=== PATIENT | male | born 1990 | race Caucasian/White ===

== ENCOUNTER 2016-08-14 23:28 | Emergency (ER) | payer SELFPAY ==
[2016-08-14 23:43] VITALS: BP 134/85
[2016-08-14] MEDS ORDERED: TETRACAINE HCL/PF 5% OPTH SOL OP ONE (23:48)
--- NOTE | 2016-08-14 23:49 | ED Physician Documentation ---
Ear Complaints - HISTORIAN Historian: patient - HPI Stated Complaint: LEFT EAR PAIN Chief Complaint: Ear Complaints Additional Information: feels like he has another pimple inside his ear canal, he has had a couple similar the past few weeks, and has put a q-tip in and pushed on it and popped it, and fluid came out. he feels like there is another one in their now. no other complaints. Timing: still present Location of Pain: L ear Severity: moderate Associated Symptoms: sharp pain. denies: fever, chills, ringing, roaring, trauma to ear Further Comments: no - ROS CONST: no problems CVS/RESP: none MS/SKIN/LYMPH: none NEURO/PSYCH: denies: weakness All Systems -: No - PAST HX Past History: none Immunizations: UTD Allergies/Adverse Reactions: Allergies Allergy/AdvReac Type Severity Reaction Status Date / Time nuts Allergy Uncoded 08/14/16 23:44 Home Medications: Ambulatory Orders Medication Instructions Recorded NK [NK] 08/14/16 - SOCIAL HX Smoking History: non-smoker Alcohol Use: none Drug Use: none - FAMILY HX Family History: No - VITAL SIGNS Vital Signs: Vital Signs Temp Pulse Resp BP Pulse Ox 98.5 F 85 14 134/85 99 08/14/16 23:29 08/14/16 23:29 08/14/16 23:29 08/14/16 23:29 08/14/16 23:29 - REVIEWED ASSESSMENTS Nursing Assessment Reviewed: Yes Vitals Reviewed: Yes Ear Complaint Physical Exam - EXAM General Appearance: no acute distress, alert Ear: auricle nml, erythema, swelling of canal, other (it appears to be a small pimple superior EAC on left, Right is unrenmarkable). No: pain w movement of auricl, bulging of TM, perforation of TM, fluid behind TM, foreign body Mouth/Throat: lips nml Nose: nml inspection Head/Neck: atraumatic, neck nml inspection Eye: eyes nml inspection Skin: nml color, no skin rash Neuro/Psych: oriented x3, mood/affect nml Discharge Clincal Impression: Acute otitis externa of left ear Qualifiers: Otitis externa type: other infective Qualified Code(s): H60.392 - Other infective otitis externa, left ear Home Medications: Ambulatory Orders NK [NK] 08/14/16 Condition: Good Disposition: 01 HOME, SELF-CARE Decision to Admit: NO Date of Decison to Admit: 08/14/16 Decision Time: 23:52
[2016-08-14] MEDS: TETRACAINE HCL/PF 5% OPTH SOL OP ONE (23:56)
== END 2016-08-14 23:57 | disposition home or self-care (01) ==
LOC: ED 23:28
DX: H60.392 Other infective otitis externa, left ear (principal)
CPT/HCPCS: 99283

== ENCOUNTER 2016-08-24 14:24 | Emergency (ER) | payer SELFPAY ==
--- NOTE | 2016-08-24 14:39 | ED Physician Documentation ---
General Adult - HISTORIAN Historian: patient - HPI Stated Complaint: ear pain Chief Complaint: General Adult Onset: days ago Timing: still present Severity: moderate Further Comments: yes (Pt is a 25 yo male with L ear pain. Pt was seen here 10 days ago for the same problem and was found to have a pimple in the L ear canal. Pt was rx'd Bactrim DS, but was unable to fill the rx until yesterday. Pt has had 2 doses of Bactrim, but problem has worsened and pt has signicant pain and cannot sleep. No systemic sx, no fever, n/v. No sore throat.) - ROS CONST: no problems EYES/ENT: other (severe L ear canal pain) CVS/RESP: none GI/: none MS/SKIN/LYMPH: none - PAST HX Past History: other (tonsillectomy) Allergies/Adverse Reactions: Allergies Allergy/AdvReac Type Severity Reaction Status Date / Time nuts Allergy Uncoded 08/24/16 14:39 Home Medications: Ambulatory Orders Medication Instructions Recorded NK [NK] 08/14/16 - SOCIAL HX Smoking History: cigarettes - FAMILY HX Family History: No - VITAL SIGNS Vital Signs: Vital Signs Temp Pulse Resp BP Pulse Ox 134/85 08/15/16 00:04 - REVIEWED ASSESSMENTS Nursing Assessment Reviewed: Yes Vitals Reviewed: Yes Progress - Progress Progress: Rx Keflex 500 mg. Take one every 8 hrs for 10 days. Rx [place] (5/325). Take one or two tablets every 4 to 6 hrs as needed for moderate to severe pain. May cause drowsiness. f/u pcp or ENT if sx persist or recur. General Adult Physical Exam - PHYSICAL EXAM GENERAL APPEARANCE: moderate distress EENT: eye inspection normal, pharynx normal, other (There is a small visible abscess, which appears like a pimple, in the L ear canal) NECK: normal inspection, supple RESPIRATORY: no resp distress, chest non-tender, breath sounds normal CVS: reg rate & rhythm BACK: normal inspection SKIN: warm/dry, normal color EXTREMITIES: normal range of motion NEURO: oriented X3, motor nml, sensation nml Discharge Clincal Impression: Acute otitis externa of left ear Qualifiers: Otitis externa type: unspecified type Qualified Code(s): H60.502 - Unspecified acute noninfective otitis externa, left ear Referrals: Primary Doctor,No [Primary Care Provider] - Home Medications: Ambulatory Orders NK [NK] 08/14/16 Condition: Stable Disposition: 01 HOME, SELF-CARE Decision to Admit: NO Decision Time: 14:51
[2016-08-24] MEDS ORDERED: HYDROcodone /APAP 5/325 1 EACH TABLET PO ONE (15:02)
[2016-08-24 15:10] VITALS: BP 121/82
== END 2016-08-24 15:05 | disposition home or self-care (01) ==
LOC: ED 14:24
DX: H60.502 Unspecified acute noninfective otitis externa, left ear (principal)
CPT/HCPCS: 99283; A9270-GY

== ENCOUNTER 2018-11-10 14:05 | Emergency (ER) | payer OTHER ==
[2018-11-10] MEDS ORDERED: KETOROLAC TROMETHAMINE 60 MG/2 ML VIAL IM ONE (16:44)
[2018-11-10] MEDS ORDERED: methylPREDNISolone SOD SUCC 125 MG/2 ML VIAL ONE (16:44)
== END 2018-11-10 17:10 ==
LOC: ED 14:05
DX: M54.41 Lumbago with sciatica, right side (principal)
CPT/HCPCS: 96372; 99283; J1885; J2930

== ENCOUNTER 2018-12-01 03:40 | Emergency (ER) | payer OTHER ==
[2018-12-01 04:24] VITALS: BP 115/60
--- NOTE | 2018-12-01 04:30 | ED Physician Documentation ---
General Adult - HISTORIAN Historian: patient - HPI Chief Complaint: General Adult Additional Information: Patient was playing with his dog this evening and the dog pawed his nose causing a laceration to his nose. He had some bleeding as was trying to get into the shower when he blacked out and was reported by his significant other to have seizure like activity. He became unresponsive with his arms drawn up and twisted with jerking activity. This lasted for about 6 minutes. Then he became responsive and shortly thereafter started having similar episodes of drawing his arms up with jerking activity. This occurred twice more (a total of 4 seizure like activity) with each episode lasting for several minutes. Patient was subsequently brought to the ED for evaluation. He had some mild confusion after the last episode. No incontinence of bowel or bladder. Patient was reported to have had a similar episode but not as severe last January. Work up in the ED was negative. Patient had labs, CT and an MRI scan reported to be normal. Was not seen by a neurologist at that time. Patient denies any family history of seizure, no recent drug use (has used several yrs ago), patient denies a lot of stress at this time. Timing: gone now Severity: moderate Modifying Factors: none Context: see above - ROS CONST: no problems. denies: fever, chills EYES/ENT: none CVS/RESP: none GI/: none - PAST HX Past History: other (osteoarthritis) Other History: none Surgeries/Procedures: none Immunizations: tetanus (within last 5 years), UTD Allergies/Adverse Reactions: Allergies Allergy/AdvReac Type Severity Reaction Status Date / Time nuts Allergy Uncoded 08/24/16 14:39 Home Medications: Ambulatory Orders Medication Instructions Recorded Baclofen 10 mg PO DAILY PRN 12/01/18 - SOCIAL HX Smoking History: less than 1 pack/day Alcohol Use: none Drug Use: marijuana - FAMILY HX Family History: No - VITAL SIGNS Vital Signs: Vital Signs Temp Pulse Resp BP Pulse Ox 121/82 08/24/16 15:05 - REVIEWED ASSESSMENTS Nursing Assessment Reviewed: Yes Procedures Wound Location: head (nose) Wound Length: 3mm Wound's Depth, Shape: superficial, linear Wound Explored: clean Betadine Prep?: Yes Wound Repaired With: Dermabond Progress - Progress Progress: Patient resting quietly with no further episodes Nasal laceration cleaned with betadine and glued. ED Results Lab/Radiology - Lab Results Lab Results: UA - 2+ protein otherwise normal urine drus screen positive for marijuana - Radiology Radiology Impressions: CT scan of the head is normal General Adult Physical Exam - PHYSICAL EXAM GENERAL APPEARANCE: no distress EENT: eye inspection normal, MIKE (Fundi benign), TM's nml, pharyngeal erythema. No: oral lesions, dry mucous membranes NECK: normal inspection, thyroid normal, supple, lymphadenopathy RESPIRATORY: no resp distress, chest non-tender, breath sounds normal. No: wheezes, rales, rhonchi CVS: reg rate & rhythm, heart sounds normal, equal pulses, no murmur, no gallop ABDOMEN: soft, no organomegaly, normal bowel sounds, no abdominal bruit, no distension, non-tender BACK: normal inspection, no CVA tenderness SKIN: other (mild abrasion behing left ear from ear stud, laceration to the septum into the left nare. about 3mm, well approximated) EXTREMITIES: non-tender, normal range of motion, no evidence of injury NEURO: oriented X3, CN's nml as tested, motor nml, sensation nml, mood/affect nml, cognition normal, other (DTR equal, slightly diminished in the LE bialteral). No: asymmetric reflexes Discharge Clincal Impression: Syncope and collapse Laceration of nose Qualifiers: Encounter type: initial encounter Qualified Code(s): S01.21XA - Laceration without foreign body of nose, initial encounter Referrals: Primary Doctor,No [Primary Care Provider] - 2 Days Additional Instructions: Home and rest. Try to drink a lot of fluids and stay well hydrated. Follow-up with your primary care provider. The neurology clinic at the [facility] will call you for an appointment to be seen for further evaluation. Return to the ED as needed. Condition: Stable Disposition: HOME, SELF-CARE Decision to Admit: NO Date of Decison to Admit: 12/01/18 Decision Time: 05:50
[2018-12-01 04:45] LABS: BASOPHILS % 0.5 % (0.0-1.5); NEUTROPHILS # 8.2 # k/uL (1.4-7.7)
[2018-12-01 04:50] LABS: eGFR (Non-African) > 60
--- NOTE | 2018-12-01 06:14 | Diagnostic Imaging Report ---
ANTONI TERRY [facility] [id number] [facility] [address] [place], [place]. [address] Report Submission Date: Dec 01, 2018 5:01:23 AM CDT Patient Study Name: STEWART CORNEJO Date: Dec 01, 2018 4:36:32 AM CDT Modality Type: CT\SR Gender: M Description: CT HEAD W/O : 89 Institution: [facility] Physician: ANTONI TERRY CT head without contrast History: Seizure Technique: Images through the brain were obtained without contrast. Findings: No mass, midline shift, hydrocephalus or hemorrhage is present. The ventricles are normal. No extraaxial fluid collection is identified. Impression: Normal. Electronically signed on Dec 01, 2018 5:01:23 AM CDT by: Sha RICK
[2018-12-01 07:56] LABS: APPEARANCE,URINE CLEAR (CLEAR); COLOR,URINE AMBER (YELLOW); OCCULT BLOOD,URINE NEGATIVE (NEGATIVE)
[2018-12-01 07:57] LABS: CANNABINOIDS NON NEGATIVE ng/mL (< 50); METHYLENEDIOXYMETHAMPHETAMINE NEGATIVE ng/mL (<500)
== END 2018-12-01 06:04 | disposition home or self-care (01) ==
LOC: ED 03:40
DX: R55 Syncope and collapse (principal); S01.21XA Laceration without foreign body of nose, initial encounter; W54.8XXA Other contact with dog, initial encounter; Y99.8 Other external cause status
CPT/HCPCS: 70450; 80053; 80377; 81002; 85025; 99281; 99282; G0481; S1016